=== PATIENT | female | born 1995 | race Caucasian/White ===

== ENCOUNTER 2019-06-10 15:18 | Emergency (ER) | payer OTHER, SELFPAY ==
[2019-06-10 15:26] VITALS: BP 133/90; PULSE 67; RESP 12; TEMP 36.8; O2SAT 100
--- NOTE | 2019-06-10 15:42 | DI.RAD.S_ITS ---
PROCEDURE: XR ABDOMEN MIN 2V INDICATIONS: abd pain TECHNIQUE: 2 views of the abdomen were acquired. COMPARISON: None. FINDINGS: Surgical changes and devices: None. Bowel: Air-filled distended small bowel loops are identified demonstrating air-fluid levels. A moderate to large amount of stool seen throughout the colon. The bowel gas pattern is normal. Soft tissues: No masses; visualized solid organ contours appear normal in size. No suspicious abdominal calcifications. Bones: No suspicious bony abnormalities. IMPRESSION: Possible constipation. No bowel obstruction. Dictated by: Cayetano Hurtado M.D. on 06/10/2019 at 15:21 Approved by: Cayetano Hurtado M.D. on 06/10/2019 at 15:23
--- NOTE | 2019-06-10 15:45 | ED_ITS ---
HPI - Abdominal Pain <PROSPER Wei-BC - Last Filed: 06/10/19 18:01> General Chief Complaint: Abdominal Pain Stated Complaint: Hasn't had a regular bowel movement in 3wks Time Seen by Provider: 06/10/19 15:21 Source: patient Mode of arrival: Ambulatory Limitations: no limitations History of Present Illness HPI narrative: The patient is a 23-year-old female nonsmoker who denies pertine nt medical history who presents with a chief complaint of constipation for the past 3 weeks. She states that it has been difficult to have bowel movements, that she has had small pebbly bowel movements as well as skinny bowel movements. She denies any change in dietary history, though does use protein powders. She has tried apple cider vinegar, apple juice, a dose of MiraLax to try to move her bowels, but is having no success. She states she is still moving gas, no nausea or vomiting but states that she does not want to eat because she always feels ?full. Related Data Home Medications Medication Instructions Recorded Confirmed [IMPLANTED CONT] #0 04/10/17 Previous Rx's Medication Instructions Recorded DIPHENHYDRAMINE/LIDO VISC/MAALOX 0 ml PO Q4HP PRN #100 ml 09/23/15 1:1:1~ Allergies Allergy/AdvReac Type Severity Reaction Status Date / Time No Known Drug Allergies Allergy Verified 06/10/19 16:55 Review of Systems <PROSPER Wei-BC - Last Filed: 06/10/19 18:01> Review of Systems Narrative: GENERAL: Denies chills, fatigue, malaise, fever, sweats. HEENT: Denies sinus pain, ear pain, sore throat, difficulty swallowing, dizziness. RESPIRATORY: Denies dyspnea, cough, wheezing, hemoptysis, sputum. CARDIOVASCULAR: Denies chest pain, palpitations, orthopnea, edema, GASTROINTESTINAL: See HPI : Denies dysuria, frequency, incontinence, hematuria, urinary retention. MUSCULOSKELETAL: denies weakness, joint pain, or bony pain SKIN: Denies rash, skin lesions, or other NEUROLOGIC: Denies weakness, headache, numbness, change in speech, confusion, seizures, incoordination. PSYCHIATRIC: No concerning psychosocial issues. 12 point review of systems is negative except for those stated above Patient History <FATOU Wei - Last Filed: 06/10/19 18:01> Social History Smoking Status: Never smoker Smoking Status: Never smoker Substance Use Type: does not use Exam <FATOU Wei - Last Filed: 06/10/19 18:01> Narrative Exam Narrative: GENERAL: This is a well-nourished, well-developed patient, in no acute distress HEAD: Atraumatic. Normocephalic. No temporal or scalp tenderness. EYES: Pupils equal round and reactive. Extraocular motions intact. No scleral icterus. No injection or drainage. ENT: Nose without bleeding, purulent drainage or septal hematoma. Throat without erythema, tonsillar hypertrophy or exudate. Uvula midline. Airway patent. NECK: Trachea midline. No JVD or lymphadenopathy. Supple, nontender, no meningeal signs. CARDIOVASCULAR: Regular rate and rhythm RESPIRATORY: Clear to auscultation. Breath sounds equal bilaterally. No wheezes, rales, or rhonchi. GASTROINTESTINAL: Abdomen soft, diffusely tender, nondistended. No hepato- splenomegaly, or palpable masses. No guarding. Active bowel sounds all 4 quadrants EXTREMITIES: No clubbing, cyanosis, or edema. No joint tenderness, effusion, or edema noted. BACK: Nontender without deformity or crepitance. No flank tenderness. NEURO: AOx3. SKIN: No rash or erythema. Initial Vital Signs Initial Vital Signs: Vital Signs Temperature 98.2 F 06/10/19 15:26 Pulse Rate 67 06/10/19 15:26 Respiratory Rate 12 06/10/19 15:26 Blood Pressure 133/90 06/10/19 15:26 Pulse Oximetry 100 06/10/19 15:26 <Keshav Willis MD - Last Filed: 06/10/19 18:04> Initial Vital Signs Initial Vital Signs: Vital Signs Temperature 98.2 F 06/10/19 15:26 Pulse Rate 67 06/10/19 15:26 Respiratory Rate 12 06/10/19 15:26 Blood Pressure 133/90 06/10/19 15:26 Pulse Oximetry 100 06/10/19 15:26 Course <FATOU Wei - Last Filed: 06/10/19 18:01> Orders Ordered: ED Orders 06/10/19 15:42 XR abdomen min 2V Stat Vital Signs Vital signs: Vital Signs - 8 hr 06/10/19 15:26 06/10/19 17:00 Temperature 98.2 F Pulse Rate 67 75 Respiratory Rate 12 16 Blood Pressure 133/90 Blood Pressure [Left Arm] 106/53 L Pulse Oximetry 100 100 <Keshav Willis MD - Last Filed: 06/10/19 18:04> Orders Ordered: ED Orders 06/10/19 15:42 XR abdomen min 2V Stat Vital Signs Vital signs: Vital Signs - 8 hr 06/10/19 15:26 06/10/19 17:00 Temperature 98.2 F Pulse Rate 67 75 Respiratory Rate 12 16 Blood Pressure 133/90 Blood Pressure [Left Arm] 106/53 L Pulse Oximetry 100 100 MDM - Abdominal Pain <FATOU Wei - Last Filed: 06/10/19 18:01> Lab Data Point of care testing: Point of Care Testing Test Results Negative Urine Dip Bedside Urine Glucose Negative Bedside Urine Bilirubin - Negative Bedside Urine Ketone - Negative Urine Specific [place] 1.010 Bedside Urine Occult Blood - Negative Bedside Urine pH 7.5 Bedside Urine Protein - Negative Bedside Urine Urobilinogen - Negative Bedside Urine Nitrite - Negative Bedside Urine Leukocytes - Negative Esterase Imaging Data Abdominal x-ray: Radiologist's Impression: [address] [place] [address] XRay Report Signed Patient: Gallo Chan RMR#: [id number] : 1995Acct:[id number] Age/Sex: 23 / FDate of Service: 06/10/19 Loc: ED Accession Number: [id number] Procedure: XR abdomen min 2V Ordering Provider: Veronika Smith PROCEDURE: XR ABDOMEN MIN 2V INDICATIONS: abd pain TECHNIQUE: 2 views of the abdomen were acquired. COMPARISON: None. FINDINGS: Surgical changes and devices: None. Bowel: Air-filled distended small bowel loops are identified demonstrating air- fluid levels. A moderate to large amount of stool seen throughout the colon. The bowel gas pattern is normal. Soft tissues: No masses; visualized solid organ contours appear normal in size. No suspicious abdominal calcifications. Bones: No suspicious bony abnormalities. IMPRESSION: Possible constipation. No bowel obstruction. Dictated by: Cayetano Hurtado M.D. on 06/10/2019 at 15:21 Approved by: Cayetano Hurtado M.D. on 06/10/2019 at 15:23 MDM Narrative Medical decision making narrative: The patient is a 23-year-old female who presents with a chief complaint of constipation for the past 2-3 weeks and wanting advice on what to do to help. She is able to tolerate p.o. fluids, has no acute pain on exam, does not have any acute abdomen on exam is afebrile and appears well and nontoxic in the emergency department throughout her stay. Her x-ray shows some constipation. I discussed at length use of MiraLax, docusate, senna, increasing water in diet and general constipation guidelines. I encouraged her to follow up with primary care provider in the next few days. Discussed at length coming back to the emergency department for any acute concerns such as inability keep down fluids, abdominal pain with fever etcetera. Patient has no questions or concerns upon discharge and states understanding return precautions as well as follow-up care. <Keshav Willis MD - Last Filed: 06/10/19 18:04> Lab Data Point of care testing: Point of Care Testing Test Results Negative Urine Dip Bedside Urine Glucose Negative Bedside Urine Bilirubin - Negative Bedside Urine Ketone - Negative Urine Specific [place] 1.010 Bedside Urine Occult Blood - Negative Bedside Urine pH 7.5 Bedside Urine Protein - Negative Bedside Urine Urobilinogen - Negative Bedside Urine Nitrite - Negative Bedside Urine Leukocytes - Negative Esterase Discharge Plan Departure Patient Disposition: Home Clinical Impression: Constipation Qualifiers: Constipation type: unspecified constipation type Qualified Code(s): K59.00 - Constipation, unspecified Discharge Date/Time: 06/10/19 17:05 Instructions: DI for Constipation Activity Restrictions/Additional Instructions: Thank you for trusting us with your care today. Fortunately your abdominal x-ray shows no evidence of bowel obstruction. As discussed, I suggest the following measures to help improve constipation: -be sure your staying very hydrated with water -be sure that you are increasing your fiber intake -I suggest MiraLax, docusate as a stool softener, senna as a laxative. -senna can also be obtained from [id number] smooth move tea It is important that you continue the measures to make sure continue having bowel movements. Please follow-up with primary care provider in the next few days Please come back to the emergency department for any acute concerns such as inability keep down food or fluids, abdominal pain with fever etcetera Prescriptions: No Action DIPHENHYDRAMINE/LIDO VISC/MAALOX 1:1:1~ 100 ML 0 ml PO Q4HP PRNQty: 100 RF: 0 [IMPLANTED CONT] Qty: 0 RF: 0 Referrals: [facility] [Provider Group] <Keshav Willis MD - Last Filed: 06/10/19 18:04> Cosign ED Attending Cosignature Attestation: I was immediately available in the department for consultation. This documentation has been reviewed and I agree with assessment and plan. Supervised by Keshav Willis MD
[2019-06-10 17:00] VITALS: BP 106/53; PULSE 75; RESP 16; O2SAT 100
== END 2019-06-10 17:05 | disposition home or self-care (01) ==
PROVIDERS: Emergency Provider Nurse Practitioner Family
DX: K59.00 Constipation, unspecified (principal); R10.9 Unspecified abdominal pain
CPT/HCPCS: 74019; 81003; 81025; 99282; 99283

== ENCOUNTER 2020-02-18 08:30 | Emergency (ER) | payer OTHER, SELFPAY ==
[2020-02-18 08:30] VITALS: BP 135/89; PULSE 65; RESP 16; TEMP 36.9; O2SAT 100; BMI 22.9
[2020-02-18 09:29] LABS: Bacteria Urine None Seen; RBC Urine None Seen (0-5/HPF)
[2020-02-18 09:35] LABS: Culture Indicated Urine Specimen Cultured; WBC Urine 5-10/HPF (0-5/HPF)
--- NOTE | 2020-02-18 10:16 | ED_ITS ---
HPI - Female Genitourinary <EVELIN WeiBC - Last Filed: 02/18/20 14:50> General Chief complaint: Urogenital-Female Stated complaint: bad UTI sx, did 2 OTC treatments Time Seen by Provider: 02/18/20 10:05 Source: patient Mode of arrival: Ambulatory Limitations: no limitations History of Present Illness HPI Narrative: The patient is a 24-year-old female nonsmoker with history of urinary tract infections who presents with a chief complaint of dysuria urgency and frequency for the past 10 days. She denies any fevers vomiting or diarrhea. She complains of slight nausea and slight suprapubic pain. She states she has a history of urinary tract infections and that this correlates with previous urinary tract infections. She started having symptoms on the of last month. She pushed fluids and took 2 rounds of [id number] urinary tract infection azo. She has had no recent antibiotics for urinary tract infection, she has had antibiotics for a dental infection a few months ago, which she believes is amoxicillin. Related Data Home Medications Medication Instructions Recorded Confirmed [IMPLANTED CONT] #0 04/10/17 Previous Rx's Medication Instructions Recorded DIPHENHYDRAMINE/LIDO VISC/MAALOX 0 ml PO Q4HP PRN #100 ml 09/23/15 1:1:1~ nitrofurantoin monohyd/m-cryst 100 mg PO Q12H 7 Days #14 cap 02/18/20 [Macrobid] Allergies Allergy/AdvReac Type Severity Reaction Status Date / Time No Known Drug Allergies Allergy Verified 06/10/19 16:55 Review of Systems <FATOU Wei - Last Filed: 02/18/20 14:50> Review of Systems Narrative: GENERAL: Denies chills, fatigue, malaise, fever, sweats. HEENT: Denies sinus pain, ear pain, sore throat, difficulty swallowing, dizziness. RESPIRATORY: Denies dyspnea, cough, wheezing, hemoptysis, sputum. CARDIOVASCULAR: Denies chest pain, palpitations, orthopnea, edema, GASTROINTESTINAL: Denies nausea, vomiting, abdominal pain, diarrhea, constipa tion, melena. : See HPI MUSCULOSKELETAL: denies weakness, joint pain, or bony pain SKIN: Denies rash, skin lesions, or other NEUROLOGIC: Denies weakness, headache, numbness, change in speech, confusion, seizures, incoordination. PSYCHIATRIC: No concerning psychosocial issues. 12 point review of systems is negative except for those stated above Patient History <FATOU Wei - Last Filed: 02/18/20 14:50> Substance Use Type: does not use Exam <FATUO Wei - Last Filed: 02/18/20 14:50> Narrative Exam Narrative: GENERAL: This is a well-nourished, well-developed patient, in no acute HEAD: Atraumatic. Normocephalic. No temporal or scalp tenderness. EYES: Pupils equal round and reactive. Extraocular motions intact. No scleral icterus. No injection or drainage. ENT: Nose without bleeding, purulent drainage or septal hematoma. Wearing a mask Airway patent. NECK: Trachea midline. No JVD or lymphadenopathy. Supple, nontender, no meningeal signs. CARDIOVASCULAR: Regular rate and rhythm RESPIRATORY: Clear to auscultation. Breath sounds equal bilaterally. No wheezes, rales, or rhonchi. No cough. No increased respiratory effort. No accessory muscle use. GASTROINTESTINAL: Abdomen soft, active bowel sounds all 4 quadrants, slight suprapubic tenderness to palpation, nondistended. No hepato-splenomegaly, or palpable masses. No guarding. EXTREMITIES: No clubbing, cyanosis, or edema. No joint tenderness, effusion, or edema noted. BACK: Nontender without deformity or crepitance. No CVA tenderness bilaterally NEURO: AOx3. SKIN: No rash or erythema on visible skin Initial Vital Signs Initial Vital Signs: Vital Signs Temperature 98.5 F 02/18/20 08:30 Pulse Rate 65 02/18/20 08:30 Respiratory Rate 16 02/18/20 08:30 Blood Pressure 135/89 02/18/20 08:30 Pulse Oximetry 100 02/18/20 08:30 <Veronika Núñez DO - Last Filed: 02/18/20 15:54> Initial Vital Signs Initial Vital Signs: Vital Signs Temperature 98.5 F 02/18/20 08:30 Pulse Rate 65 02/18/20 08:30 Respiratory Rate 16 02/18/20 08:30 Blood Pressure 135/89 02/18/20 08:30 Pulse Oximetry 100 02/18/20 08:30 Scores <EVELIN WeiBC - Last Filed: 02/18/20 14:50> GCS [place] coma scale eye opening: Spontaneous [place] coma scale verbal response: Orientated [place]un[place] coma scale motor response: Obey commands [place] coma scale total score: 15 Course <PROSPER Wei-BC - Last Filed: 02/18/20 14:50> Orders Ordered: ED Orders 02/18/20 09:13 Urine Culture Stat Urine Microscopic Stat Vital Signs Vital signs: Vital Signs - 8 hr 02/18/20 08:30 02/18/20 10:59 Temperature 98.5 F Pulse Rate 65 69 Respiratory Rate 16 Blood Pressure 135/89 124/69 Pulse Oximetry 100 99 <Veronika Federica RousseauтатьянаDO - Last Filed: 02/18/20 15:54> Orders Ordered: ED Orders 02/18/20 09:13 Urine Culture Stat Urine Microscopic Stat Vital Signs Vital signs: Vital Signs - 8 hr 02/18/20 08:30 02/18/20 10:59 Temperature 98.5 F Pulse Rate 65 69 Respiratory Rate 16 Blood Pressure 135/89 124/69 Pulse Oximetry 100 99 MDM - Female Genitourinary <FATOU Wei - Last Filed: 02/18/20 14:50> Lab Data Labs: Lab Results 02/18/20 Range/Units 09:13 Urine RBC None seen (0-5/HPF) Urine WBC 5-10/hpf H (0-5/HPF) Urine Bacteria None seen (None) Ur Culture Indicated? Specimen cultured Point of Care Testing Test Results Negative Urine Dip Bedside Urine Glucose Negative Bedside Urine Bilirubin - Negative Bedside Urine Ketone - Negative Urine Specific [place] 1.010 Bedside Urine Occult Blood - Negative Bedside Urine pH 6.0 Bedside Urine Protein - Negative Bedside Urine Urobilinogen - Negative Bedside Urine Nitrite - Negative Bedside Urine Leukocytes ++ 125 Esterase MDM Narrative Medical decision making narrative: The patient is a 24-year-old female with history of urinary tract infections who presents with a chief complaint dysuria urgency and frequency that has been ongoing for 10 days. She is not concerned about sexually transmitted infections and denies vaginal discharge. She states that this is consistent with previous urinary tract infections. Urinalysis has leukocyte esterase. She does not have any signs of systemic illness, is afebrile hemodynamically stable and nontoxic appearing in the emergency department. She was given a prescription of Macrobid, urine cultures pending. Encouraged to take with probiotic or your to help prevent side effects. Discussed follow-up with primary care provider, monitoring for signs of worsening such as flank pain fever etcetera. Patient has no questions or concerns upon discharge and states understanding of return precautions as well as follow-up care. <Veronika Núñez, DO - Last Filed: 02/18/20 15:54> Lab Data Labs: Lab Results 02/18/20 Range/Units 09:13 Urine RBC None seen (0-5/HPF) Urine WBC 5-10/hpf H (0-5/HPF) Urine Bacteria None seen (None) Ur Culture Indicated? Specimen cultured Point of Care Testing Test Results Negative Urine Dip Bedside Urine Glucose Negative Bedside Urine Bilirubin - Negative Bedside Urine Ketone - Negative Urine Specific [place] 1.010 Bedside Urine Occult Blood - Negative Bedside Urine pH 6.0 Bedside Urine Protein - Negative Bedside Urine Urobilinogen - Negative Bedside Urine Nitrite - Negative Bedside Urine Leukocytes ++ 125 Esterase Discharge Plan Departure Patient Disposition: Home Clinical Impression: Urinary tract infection Qualifiers: Urinary tract infection type: site unspecified Hematuria presence: without hematuria Qualified Code(s): N39.0 - Urinary tract infection, site not specified Instructions: DI for Urinary Tract Infection (UTI) Activity Restrictions/Additional Instructions: Thank you for trusting us with your care today. As discussed, your urinalysis and symptoms are concerning for urinary tract infection. Please monitor for high fevers, severe flank pain inability keep down fluids or signs of worsening as these could be signs that the infection is going to your kidneys. I suggest taking a probiotic or yogurt with the antibiotic to help prevent antibiotic related side effects. I sent a prescription of an antibiotic to [facility]. Please continue to push fluids. Please follow-up with primary care provider in the next few days. We will complete a urine culture and if we need to change your antibiotics based on this, we will call you. Please come back to emergency department for any acute concerns. Prescriptions: New nitrofurantoin monohyd/m-cryst [Macrobid] 100 mg capsule 100 mg PO Q12H 7 Days Qty: 14 RF: 0 No Action DIPHENHYDRAMINE/LIDO VISC/MAALOX 1:1:1~ 100 ML 0 ml PO Q4HP PRNQty: 100 RF: 0 [IMPLANTED CONT] Qty: 0 RF: 0 [facility]: [facility] [Provider Group] <Veronika Núñez, DO - Last Filed: 02/18/20 15:54> Cosign ED Attending Cosignature Attestation: I was immediately available in the department for consultation. Documentation has been reviewed.
[2020-02-18 10:59] VITALS: BP 124/69; PULSE 69; O2SAT 99
== END 2020-02-18 11:25 | disposition home or self-care (01) ==
PROVIDERS: Emergency Medicine; Emergency Provider Nurse Practitioner Family
DX: N39.0 Urinary tract infection, site not specified (principal); R11.0 Nausea; R10.2 Pelvic and perineal pain
CPT/HCPCS: 81003; 81015; 81025; 87086; 99282